=== PATIENT | female | born 1985 | race Caucasian/White ===

== ENCOUNTER 2017-03-16 21:38 | Emergency (ER) | payer BC, MEDICAID ==
[~2017-03-16 21:38] MED LIST: CIPR500T4 PO; DICL75 PO; HYDR-3533 PO
[2017-03-16 21:39] VITALS: BP 175/100; PULSE 85; RESP 16; TEMP 97.8; O2SAT 98
[2017-03-16 23:11] LABS: AUTOMATED NEUTROPHIL # 9.9 TH/MM3 (1.8-7.7); BASOPHIL # 0.1 TH/MM3 (0-0.2); BASOPHIL % 0.4 % (0.0-2.0); EOSINOPHIL # 0.4 TH/MM3 (0-0.4); EOSINOPHIL % 2.8 % (0.0-4.0); HEMATOCRIT 43.9 % (35.0-46.0); HEMO FLAGS DIFF FINAL; LYMPH % 21.4 % (9.0-44.0); MEAN CELL VOLUME 84.5 FL (80.0-100.0); MEAN CORPUSCULAR HEMOGLOBIN 28.2 PG (27.0-34.0); MEAN CORPUSCULAR HGB CONC 33.4 % (32.0-36.0); MONO % 5.7 % (0.0-8.0); NEUT % 69.7 % (16.0-70.0); PLATELET COUNT 253 TH/MM3 (150-450); RED CELL DISTRIBUTION WIDTH 12.8 % (11.6-17.2); WHITE BLOOD COUNT 14.2 TH/MM3 (4.0-11.0)
[2017-03-16 23:17] LABS: BACTERIA, URINE RARE /hpf; BLOOD, URINE SMALL (NEG); COMMENT (UR) CULT NOT INDICATED; CULTURE IF INDICATED CULT NOT INDICATED; GLUCOSE,URINE NEG (NEG); KETONE, URINE NEG (NEG); MUCUS URINE FEW /lpf (OCC); NITRITE,URINE NEG (NEG); SQUAMOUS EPITHELIAL CELL URINE 1 /hpf (0-5); URINE COLOR YELLOW (YELLW/STRAW)
[2017-03-16 23:36] LABS: ALT (GPT) 26 U/L (10-53); ANION GAP 8 MEQ/L (5-15); AST (GOT) 15 U/L (15-37); BICARBONATE 27.8 MEQ/L (21.0-32.0); BLOOD UREA NITROGEN 8 MG/DL (7-18); CHLORIDE 105 MEQ/L (98-107); GLOMERULAR FILTRATION RATE 118 ML/MIN (>89); POTASSIUM 3.3 MEQ/L (3.5-5.1); SODIUM (NA) 141 MEQ/L (136-145)
[2017-03-16 23:38] LABS: ALKALINE PHOSPHATASE 66 U/L (45-117); TOTAL BILIRUBIN ADULT 0.4 MG/DL (0.2-1.0)
--- NOTE | 2017-03-16 23:46 | PD ---
HPI Chief Complaint: Flank/Kidney Pain Time Seen by Provider: 22:38 Travel History International Travel<30 days: No Contact w/Intl Traveler<30days: No Traveled to known affect area: No History of Present Illness HPI The patient is a 31 year old female who presents to the [facility] emergency department with a history of left flank pain that recurred at 2 PM today. She reports that she has a history of kidney stones. She reports that she's had 6 kidney stones in the past. She reports that she last saw her urologist in 08/2016. She reports that she was diagnosed with a 10 mm kidney stone on the left side, however she was not able to afford the lithotripsy. The patient reports that today she's had nausea and vomiting 2. She denies having any diarrhea. She reports that her last bowel movement was earlier today. She denies having any blood in her stool or black or tarry stools. She denies having any blood in her urine. She denies having having dysuria, urinary frequency, or urinary urgency. The patient reports that the pain radiates down into the left lower quadrant of the abdomen. The patient denies any recent fevers, cough, congestion, neck pain, chest pain, shortness of breath , or neurologic symptoms. [facility] Past Medical History Narrative Medical The patient's past medical history is significant for kidney stones, hypertension, headaches, ovarian cysts. Arthritis: Yes Cardiovascular Problems: Yes (htn on meds) Diminished Hearing: No Genitourinary: Yes (LITHOTRIPSY) Kidney Stones: Yes Neurologic: Yes (FREQUENT SMITH) Reproductive: Yes (OVARIAN CYSTS ) ?: Not : 5 Para: 5 Miscarriage: 0 : 0 Tubal Ligation: Yes Past Surgical History Narrative Surgical The patient's past surgical history is significant for bilateral tubal ligation , prior history of lithotripsy. Gynecologic Surgery: Yes Other Surgery: Yes (lithotripsy) Social History Alcohol Use: No Tobacco Use: Yes (2 cigarretes per day ) Substance Use: No Allergies-Medications (Allergen,Severity, Reaction): Coded Allergies: No Known Allergies (Verified , 03/16/17) Reported Meds & Prescriptions Reported Meds & Active Scripts Active Phenergan (Promethazine HCl) 25 Mg Tab 25 Mg PO Q8HR PRN Naproxen EC (Naproxen) 500 Mg Tabdr 500 Mg PO BID PRN Cipro (Ciprofloxacin HCl) 500 Mg Tab 500 Mg PO BID 7 Days Lortab 5 mg/325 mg (Hydrocodone/Acetaminophen 5 mg/325 mg) 1 Tab 1 Tab PO Q6H PRN Diclofenac Sodium Dr (Diclofenac Sod) 75 Mg Tab 75 Mg PO BID PRN Atenolol prn. Review of Systems Except as stated in HPI: all other systems reviewed are Neg General / Constitutional: No: Fever Eyes: No: Visual changes HENT: No: Headaches Cardiovascular: No: Chest Pain or Discomfort Respiratory: No: Shortness of Breath Gastrointestinal: Positive: Nausea, Vomiting, Abdominal Pain, No: Diarrhea, Hematemesis, Hematochezia, Constipation, Changes in Bowel Habits, Indigestion, Loss of Appetite Genitourinary: Positive: Flank Pain (left flank), No: Urgency, Frequency, Dysuria Musculoskeletal: No: Pain Skin: No Rash Neurologic: No: Weakness Psychiatric: No: Depression Endocrine: No: Polydipsia Hematologic/Lymphatic: No: Easy Bruising Physical Exam Narrative General: The patient is a well-developed well-nourished female in no acute distress. Head and Neck exam: Head is normocephalic atraumatic. Eyes: EOMI, pupils are equal round and reactive to light. Nose: Midline septum with pink mucous membranes Mouth: Dentition unremarkable. Moist mucus membranes. Posterior oropharynx is not erythematous. No tonsillar hypertrophy. Uvula midline. Airway patent. Neck: No palpable lymphadenopathy. No nuchal rigidity. No thyromegaly. Cardiovascular: Regular rate and rhythm without murmurs, gallops, or rubs. Lungs: Clear to auscultation bilaterally. No wheezes, rhonchi, or rales. Abdomen: Soft, without tenderness to palpation in all 4 quadrants of the abdomen. No guarding, rebound, or rigidity. Normal bowel sounds are audible. No tenderness on palpation of McBurney's point. Negative Sharma sign Extremities: No clubbing, cyanosis, or edema. 2+ pulses in all 4 extremities. No calf tenderness on palpation. Back: No spinous process tenderness to palpation. Left-sided CVA tenderness on palpation Neurologic Exam: Grossly nonfocal. Skin Exam: No rash noted. Intact skin that is warm and dry. Data Data Last Documented VS Vital Signs Date Time Temp Pulse Resp B/P Pulse Ox O2 Delivery O2 Flow Rate FiO2 03/17/17 01:47 65 15 156/97 98 03/16/17 21:39 97.8 Room Air Orders Complete Blood Count With Diff (03/16/17 22:40) Comprehensive Metabolic Panel (03/16/17 22:40) Lipase (03/16/17 22:40) Urinalysis - C+S If Indicated (03/16/17 22:40) Iv Access Insert/Monitor (03/16/17 22:40) Ecg Monitoring (03/16/17 22:40) Oximetry (03/16/17 22:40) Ed Urine Pregnancytest Poc (03/16/17 22:40) Sodium Chlor 0.9% 1000 Ml Inj (Ns 1000 M (03/17/17 00:00) Ondansetron Inj (Zofran Inj) (03/17/17 00:00) Ketorolac Inj (Toradol Inj) (03/17/17 00:00) Ct Abd/Pel W/O Iv Contrast (03/16/17 23:48) Potassium Chloride (Kcl) (03/17/17 01:15) Labs Laboratory Tests Test 03/16/17 03/16/17 22:45 22:55 White Blood Count 14.2 TH/MM3 Red Blood Count 5.20 MIL/MM3 Hemoglobin 14.7 GM/DL Hematocrit 43.9 % Mean Corpuscular Volume 84.5 FL Mean Corpuscular Hemoglobin 28.2 PG Mean Corpuscular Hemoglobin 33.4 % Concent Red Cell Distribution Width 12.8 % Platelet Count 253 TH/MM3 Mean Platelet Volume 8.7 FL Neutrophils (%) (Auto) 69.7 % Lymphocytes (%) (Auto) 21.4 % Monocytes (%) (Auto) 5.7 % Eosinophils (%) (Auto) 2.8 % Basophils (%) (Auto) 0.4 % Neutrophils # (Auto) 9.9 TH/MM3 Lymphocytes # (Auto) 3.0 TH/MM3 Monocytes # (Auto) 0.8 TH/MM3 Eosinophils # (Auto) 0.4 TH/MM3 Basophils # (Auto) 0.1 TH/MM3 CBC Comment DIFF FINAL Differential Comment Sodium Level 141 MEQ/L Potassium Level 3.3 MEQ/L Chloride Level 105 MEQ/L Carbon Dioxide Level 27.8 MEQ/L Anion Gap 8 MEQ/L Blood Urea Nitrogen 8 MG/DL Creatinine 0.59 MG/DL Estimat Glomerular Filtration 118 ML/MIN Rate Random Glucose 82 MG/DL Calcium Level 8.6 MG/DL Total Bilirubin 0.4 MG/DL Aspartate Amino Transf 15 U/L (AST/SGOT) Alanine Aminotransferase 26 U/L (ALT/SGPT) Alkaline Phosphatase 66 U/L Total Protein 7.9 GM/DL Albumin 4.1 GM/DL Lipase 125 U/L Urine Color YELLOW Urine Turbidity CLEAR Urine pH 6.0 Urine Specific [place] 1.009 Urine Protein NEG mg/dL Urine Glucose (UA) NEG mg/dL Urine Ketones NEG mg/dL Urine Occult Blood SMALL Urine Nitrite NEG Urine Bilirubin NEG Urine Urobilinogen LESS THAN 2.0 MG/DL Urine Leukocyte Esterase NEG Urine RBC 17 /hpf Urine WBC 1 /hpf Urine Squamous Epithelial 1 /hpf Cells Urine Bacteria RARE /hpf Urine Mucus FEW /lpf Microscopic Urinalysis Comment CULT NOT INDICATED MDM Medical Decision Making Medical Screen Exam Complete: Yes Emergency Medical Condition: Yes Medical Record Reviewed: Yes Interpretation(s) Last Impressions Abdomen/Pelvis CT 03/16/17 [id number] Signed Impressions: Service Date/Time: Friday, March 17, 2017 00:27 - CONCLUSION: Left renal stones without any significant hydronephrosis. Rolanda Pagan MD Differential Diagnosis Pyelonephritis, versus ureteral lithiasis, versus renal colic, versus musculoskeletal strain Narrative Course During the course of the patients emergency department visit, the patients history, examination, and differential diagnosis were reviewed with the patient. The patient had IV access obtained and blood work sent for analysis. The patient was placed on a landscape painter with oximetry and blood pressure monitoring. The patient was initially provided normal saline 1 L IV fluid bolus, Toradol for pain, Zofran for nausea. The patients laboratory studies were reviewed and remarkable for white count of 14.2, hemoglobin 14.7, platelets 253 with a normal differential, CMP is remarkable for potassium of 3.3 which was supplemented orally, lipase 125, urinalysis is occult blood, 17 RBCs, otherwise unremarkable. Radiology studies were reviewed and remarkable for a CT scan of the abdomen and pelvis that shows left renal stones without any significant hydronephrosis. The patient will be discharged home to follow-up with her urologist. The patient is resting comfortably and feels better, is alert and in no distress. The patients results and examination findings were discussed with the patient. The repeat examination is unremarkable and benign. The history, exam, diagnostic testing, and current condition do not suggest any significant pathology to warrant further testing, continued ED treatment, admission, or surgical evaluation at this point. The vital signs have been stable. The patient does not have uncontrollable pain, intractable vomiting, or other significant symptoms. The patient's condition is stable and appropriate for discharge. The patient will pursue further outpatient evaluation with a primary care physician or other designated or consulting physician as indicated in the discharge instructions. The patient expressed understanding and was agreeable with this plan. Diagnosis Primary Impression: Flank pain Additional Impression: Nephrolithiasis Referrals: Urologist 2 days Patient Instructions: General Instructions, Kidney Stones (ED) Med/Other Pt SpecificInfo: Prescription(s) given Scripts Promethazine (Phenergan)25 Mg Tab25 Mg PO Q8HR PRN (Nausea/Vomiting) #7 TAB Ref 0 Prov:Vanita Pedersen MD 03/17/[address] (Naproxen EC)500 Mg [id number] Mg PO BID PRN (PAIN SCALE 1 TO 10) #10 TAB Ref 0 Prov:Vanita Pedersen MD 03/17/17 Disposition: 01 DISCHARGE HOME Condition: Stable Vanita Pedersen MD March 16, 2017 23:46
[2017-03-17] MEDS ORDERED: KETOROLAC TROMETHAMINE 30 MG/ML (IVP) VIAL IV PUSH ONE
[2017-03-17] MEDS ORDERED: SODIUM CHLOR 0.9% 1000 ML INJ 1,000 ML IV ONE
[2017-03-17] MEDS ORDERED: ONDANSETRON HCL 4 MG/2 ML VIAL IV ONE
--- NOTE | 2017-03-17 00:39 | RADRPT ---
EXAM DATE/TIME: 03/17/2017 00:27 [place] COMPARISON: CT ABDOMEN & PELVIS W/O CONTRAST, August 10, 2016, 14:39. INDICATIONS : Left flank pain. ORAL CONTRAST: No oral contrast ingested. RADIATION DOSE: 8.54 CTDIvol (mGy) MEDICAL HISTORY : Hypertension. Renal calculi. Ovarian cysts. SURGICAL HISTORY : Tubal ligation. ENCOUNTER: Initial ACUITY: 1 day PAIN SCALE: 7/10 LOCATION: Left flank TECHNIQUE: Volumetric scanning of the abdomen and pelvis was performed. Using automated exposure control and ad justment of the mA and/or kV according to patient size, radiation dose was kept as low as reasonably achievable to obtain optimal diagnostic quality images. FINDINGS: CT Abdomen: Approximate 9 mm left renal stone has not changed. There is no ureteral stone and there i s no hydronephrosis on either side. There are additional tiny 2 mm stones in left kidney a couple of them adjacent to the above mentioned large stone and 2 maybe 3 of them in the left upper pole. No def inite stones are present in the right kidney. The liver, spleen, pancreas, adrenals are unremarkable. There is no evidence for any appreciable pathological adenopathy, free fluid, or bowel obstruction. CT pelvis: There is no evidence for mass, abscess formation, or any significant adenopathy within the pelvis. CONCLUSION: Left renal stones without any significant hydronephrosis. Rolanda Pagan MD on March 17, 2017 at 0:34 Board Certified Radiologist. This report was verified electronically.
[2017-03-17] MEDS ORDERED: POTASSIUM CHLORIDE 20 MEQ CONTROLLED RELEASE TAB PO ONE (01:15)
[2017-03-17] MEDS ORDERED: NAPR1TAB34 PO (01:38)
[2017-03-17] MEDS ORDERED: PROM25TA5 PO (01:38)
[2017-03-17 01:47] VITALS: BP 156/97
== END 2017-03-17 02:17 | disposition home or self-care (01) ==
LOC: NEPE 21:38
DX: R10.13 Epigastric pain (principal); N20.0 Calculus of kidney; R11.2 Nausea with vomiting, unspecified; Z87.442 Personal history of urinary calculi
CPT/HCPCS: 74176; 80053; 81001; 83690; 84703; 85025; 96374; 96375; 99284; J1885; J2405; J7030

== ENCOUNTER 2017-12-16 15:04 | Emergency (ER) | payer BC, MEDICAID ==
[~2017-12-16] VITALS: Ht 175.3 cm; Wt 90.8 kg
[~2017-12-16 15:04] MED LIST changes: +NAPR1TAB34 PO; +PROM25TA5 PO
[2017-12-16 15:06] VITALS: BP 169/97; PULSE 95; RESP 16; TEMP 98.3; O2SAT 99
[2017-12-16] MEDS ORDERED: CYCL10TA PO (16:08)
[2017-12-16] MEDS ORDERED: NAPR500 PO (16:08)
--- NOTE | 2017-12-16 16:11 | PD ---
HPI Chief Complaint: Musculoskeletal Complaint Time Seen by Provider: 15:55 Travel History International Travel<30 days: No Contact w/Intl Traveler<30days: No Traveled to known affect area: No History of Present Illness HPI Patient comes to the emergency room complaining of pain of her left trapezius muscle began yesterday after work. 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 Patient denies any trauma, fevers, history of IV drug use, loss or change in bowel or bladder, chest pain, shortness of breath, weakness, numbness or tingling anywhere, or . Patient describes pain as a achy soreness is worse with movement of her neck and left upper extremity. Patient tried taking Tylenol for this with no improvement of symptoms. [facility] Past Medical History Arthritis: Yes Cardiovascular Problems: Yes (htn on meds) Diminished Hearing: No Genitourinary: Yes (LITHOTRIPSY) Kidney Stones: Yes Neurologic: Yes (FREQUENT SMITH) Reproductive: Yes (OVARIAN CYSTS ) Immunizations Current: Yes Tetanus Vaccination: Unknown Influenza Vaccination: No ?: Not LMP: 12-09-17 : 5 Para: 5 Miscarriage: 0 : 0 Tubal Ligation: Yes Past Surgical History Gynecologic Surgery: Yes Other Surgery: Yes (lithotripsy) Social History Alcohol Use: No Tobacco Use: Yes (4 cigars) Substance Use: No Allergies-Medications (Allergen,Severity, Reaction): Coded Allergies: No Known Allergies (Verified Adverse Reaction, Unknown, 12/16/17) Reported Meds & Prescriptions Reported Meds & Active Scripts Active Naprosyn (Naproxen) 500 Mg Tab 500 Mg PO Q12HR PRN Flexeril (Cyclobenzaprine HCl) 10 Mg Tab 10 Mg PO Q8HR PRN Review of Systems Except as stated in HPI: all other systems reviewed are Neg Physical Exam Narrative GENERAL: Well-developed, overly nourished, in no acute distress, and non-ill appearing. SKIN: Focused skin assessment warm and dry. HEAD: Atraumatic. Normocephalic. EYES: Pupils equal and round. EOMI. No scleral icterus. No injection or drainage. ENT: No nasal bleeding or discharge. Mucous membranes pink and moist. NECK: Trachea midline. No tenderness or crepitus over the midline of the cervical spine. Patient reports tenderness to palpation over left trapezius muscle. Supple. No nuclear rigidity. CARDIOVASCULAR: Radial pulses 2+, intact, and equal bilaterally. Capillary refill less than 2 seconds. RESPIRATORY: No accessory muscle use. No respiratory distress. MUSCULOSKELETAL: No obvious deformities. No clubbing. No cyanosis. No edema. Full range of motion. Shoulder:FROM equal BL with passive flexion, extension, Abduction, Adduction, internal/external rotation, and pronation/supination. Sensation equal BL deltoid muscles. Pulses equal BL distal to injury. Capillary refill less than 2 seconds distal to injury and equal BL. FROM distal to injury and equal BL. Strength distal to injury equal BL. NV intact distal to injury equal BL. Flexion and extension of thumb equal BL. Equal strength and movement with abduction/adductions of BL fingers. Case Folder strength equal BL. NEUROLOGICAL: Awake and alert. No obvious cranial nerve deficits. Motor grossly within normal limits. Normal speech. PSYCHIATRIC: Appropriate mood and affect; insight and judgment normal. Data Data Last Documented VS Vital Signs Date Time Temp Pulse Resp B/P (MAP) Pulse Ox O2 Delivery O2 Flow Rate FiO2 12/16/17 15:06 98.3 95 16 169/97 (121) 99 Orders Orders Ed Discharge Order (12/16/17 16:11) [facility] Medical Decision Making Medical Screen Exam Complete: Yes Emergency Medical Condition: Yes Differential Diagnosis Fracture, strain, contusion, radiculopathy Narrative Course There was no history of recent fall or blunt trauma. However, history elicited activity likely causing muscular strain and injury. There was no evidence to support cardiac or cardiopulmonary etiology (atypical angina, PE etc.) . There is also no evidence to suggest vascular pathology such as TAA or carotid dissection. No fevers or other evidence to suspect infectious processes, abscess , osteomyelitis etc. The patients neurological exam is normal with normal motor and sensory. There is no paresthesias or motor deficits reported or found and no bowel or bladder incontinence or retention. I suspect the pain is mechanical in nature. Clinical suspicion, plan of care and management was discussed with the patient. The patient was instructed to follow up with their health care provider. The patient was also instructed to return if the pain worsened, changed, or developed weakness or bowel or bladder trouble. The patient agreed with plan. Patient in no obvious distress upon re-evaluation. Patient was asked if they wanted to speak to my attending, which the patient did not wish to do at this time. Any questions/concerns in reference to patient diagnosis/condition discussed and clarified prior to patient's discharge. Reinforced sheer importance of close follow up with patient's primary physician or primary care clinic. Instructed patient to return to ED immediately, if symptoms return/ worsen. Patient showed understanding of above instructions. Further instructions and recommendations were detailed in discharge paperwork. Patient ambulated without difficulty out of ED at discharge. Diagnosis Primary Impression: Muscle strain Referrals: Yuniel Dejesus MD [facility] Patient Instructions: General Instructions, Muscle Strain (ED) Additional Instructions: Follow-up with your primary care physician and/or orthopedic in 3-5 days for reevaluation. Take all medication as prescribed. Return to the emergency department if symptoms get worse. Med/Other Pt SpecificInfo: Prescription(s) given Scripts Naproxen (Naprosyn) 500 Mg Tab 500 MG PO Q12HR Y for PAIN SCALE 1 TO 10, #14 TAB 0 Refills Prov: Sabino Yarbrough MD 12/16/17 Cyclobenzaprine (Flexeril) 10 Mg Tab 10 MG PO Q8HR Y for MUSCLE PAIN, #15 TAB 0 Refills Prov: Sabino Yarbrough MD 12/16/17 Disposition: 01 DISCHARGE HOME Condition: Stable Moises Mansfield Dec 16, 2017 16:11
== END 2017-12-16 16:18 | disposition home or self-care (01) ==
LOC: PHEFT 15:04
DX: S16.1XXA Strain of muscle, fascia and tendon at neck level, initial encounter (principal); S46.812A Strain of other muscles, fascia and tendons at shoulder and upper arm level, left arm, initial encounter; I10 Essential (primary) hypertension; M19.90 Unspecified osteoarthritis, unspecified site; X58.XXXA Exposure to other specified factors, initial encounter; Z72.0 Tobacco use; Z87.442 Personal history of urinary calculi; Z86.69 Personal history of other diseases of the nervous system and sense organs; Z87.42 Personal history of other diseases of the female genital tract
CPT/HCPCS: 99283